=== PATIENT | female | born 1945 | race Caucasian/White ===

== ENCOUNTER → 2021-02-07 11:28 | Outpatient (CLI) | payer OTHER, SELFPAY ==
--- NOTE | 2021-02-07 11:32 | DI.CT.S_ITS ---
PROCEDURE: CT CHEST HIGH RESOLUTION INDICATIONS: Interstitial pulmonary disease, unspecified TECHNIQUE: Noncontrast 1.0 and 5.0 mm thick contiguous axial sections from the pulmonary apex to the posterior costophrenic angles, with 7 mm thick coronal and sagittal MIP reformats. 1 mm thick dynamic expiratory images acquired through the upper, mid, and lower lungs. 1.0 mm thick axial sections acquired from the darlene to the posterior costophrenic angles in the prone end-inspiration position. For radiation dose reduction, the following was used: automated exposure control, adjustment of mA and/or kV according to patient size. COMPARISON: Outside Film, CT, CT CHEST WITHOUT CONTRAST, 10/03/2019, 9:37. FINDINGS: Image quality: Excellent. Lungs: Coarse, mainly subpleural irregular reticulation in the lower lobes greater than upper, and honeycombing at the lateral and posterior costophrenic sulci bilaterally. There are fibrotic changes including traction bronchiectasis in the right medial lower lobe, into a lesser extent right middle lobe and left lower lobe. Overall lung volumes are low. There are no significant ground-glass opacities, nodules, or masses. There is no air trapping on dynamic imaging. Pleura: No pleural effusions or pneumothorax. Mediastinum: Heart size is enlarged. No pericardial effusion. Thoracic aorta is of normal caliber with mild calcification. The main pulmonary arteries are enlarged. Esophagus is normal in caliber. The right lobe of the thyroid gland is enlarged and both lobes contain nodules, similar compared to the prior study. Bones and chest wall: Severe glenohumeral joint degenerative changes bilaterally. No suspicious bony lesions. No vertebral body compression fractures. Abdomen: Supra hepatic IVC appears dilated. Visualized upper abdominal solid organs and bowel loops appear otherwise normal. IMPRESSION: 1. No significant progression of interstitial lung disease in a pattern suggesting UIP or less likely NSIP. 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 2. Main pulmonary artery enlargement suggesting pulmonary artery hypertension. 3. Multinodular thyroid goiter. 4. Cardiomegaly with resolution of pleural effusions. Dictated by: Flower Sorenson M.D. on 02/07/2021 at 16:09 Approved by: Flower Sorenson M.D. on 02/07/2021 at 16:25
== END ==
PROVIDERS: PCP Family Medicine; Referring Provider Internal Medicine Rheumatology; Visit Provider Internal Medicine Rheumatology
DX: J84.9 Interstitial pulmonary disease, unspecified (principal); E04.2 Nontoxic multinodular goiter; I51.7 Cardiomegaly
CPT/HCPCS: 71250

== ENCOUNTER → 2021-02-14 08:45 | Outpatient (CLI) | payer OTHER, SELFPAY ==
[2021-02-14 09:49] LABS: COVID19 -Nasal RAPID Negative (Negative)
== END ==
PROVIDERS: PCP Family Medicine; Referring Provider Family Medicine; Visit Provider Internal Medicine
DX: Z20.822 Contact with and (suspected) exposure to COVID-19 (principal)
CPT/HCPCS: 87635; C9803

== ENCOUNTER → 2021-02-14 10:29 | Outpatient (CLI) | payer OTHER, SELFPAY ==
--- NOTE | 2021-02-22 10:07 | P.PFT.S_ITS ---
Pulmonary Function Test Referral & Results Date Patient Seen: 02/14/21 Requesting provider: Wang Trinidad Results: The spirometry demonstrates an FVC of 1.90 L which is 60% of predicted. The FEV1 was measured at 1.70 L which is 72% of predicted. The FEV1/FVC ratio was 89 which is 119% of predicted. Following the administration of bronchodilator there was a 34% improvement in FEF 25-75%. Lung volumes show an SVC of 3.05 L which is 101% of predicted. The diffusing capacity was measured at 14.31 which is 53% of predicted. No hemoglobin value was provided, so no correction for potential anemia could be made, if appropriate. The maximum voluntary ventilation was normal Interpretation: This study demonstrates perhaps very mild obstructive lung disease based on reduction FEV1 although FEV1/FVC ratio is preserved. There is evidence of minimal benefit following bronchodilator based on improvement in FEF 25-75% as above, which would suggest improvement in small airway flow. Shape a flow vo lume loop is slightly curved suggesting also the potential for some very minimal obstructive lung disease Lung volumes are normal There is a more notable reduction diffusing capacity suggesting more significant disease at the capillary alveolar level, unless patient is anemic as above
== END ==
PROVIDERS: PCP Family Medicine; Referring Provider Internal Medicine Rheumatology; Visit Provider Internal Medicine Rheumatology
DX: J84.89 Other specified interstitial pulmonary diseases (principal); M05.9 Rheumatoid arthritis with rheumatoid factor, unspecified; Z20.822 Contact with and (suspected) exposure to COVID-19
CPT/HCPCS: 87635; 94060; 94726; 94729; C9803

== ENCOUNTER → 2021-05-12 15:51 | Outpatient (CLI) | payer OTHER, SELFPAY ==
--- NOTE | 2021-05-12 15:53 | DI.ECHO.S_ITS ---
[facility]---------+ [facility] +---------+ : : [address] : : : : [id number] : : : : Phone: [phone] : [phone]+ Echocardiogram Report + + :Name: ROBY ASHTON Study Date: 05/12/2021 Height: 65.5 in: :[facility] ReadingLocation: Weight: 220 lb : : Gender: Female BSA: 2.1 m2 : :: 1945 Age: 75 yrs BP: 127/78 mmHg: :Reason For Study: ATRIAL FIBRILLATION : :Ordering Physician: MATILDE, : :MARY Performed By: Samantha Ortez : :Referring: MARY CLAYTON : + + Interpretation Summary The left ventricle is mildly dilated. The ejection fraction is estimated to be 55-60%. Diastolic parameters suggest a pseudonormalization pattern, consistent with probable elevated filling pressures. The right ventricle is normal in size and function. The left atrium is severely dilated. There is moderate mitral regurgitation. There is mild to moderate tricuspid regurgitation. The right ventricular systolic pressure is estimated to be at least 38 mmHg based on an estimated right atrial pressure of 3 mm Hg. Procedure: A two-dimensional transthoracic echocardiogram with color flow and Doppler was performed. The study quality was technically adequate. There is no prior echocardiogram noted for this patient. The patient was in sinus rhythm with heart rates between 60-65 bpm during the exam. Left Ventricle: The left ventricle is mildly dilated. There is normal left ventricular wall thickness. There is no thrombus. The ejection fraction is estimated to be 55-60%. There are no focal wall motion abnormalities. Diastolic parameters suggest a pseudonormalization pattern, consistent with probable elevated filling pressures. Right Ventricle: The right ventricle is normal in size and function. Atria: The left atrium is severely dilated. The right atrium is mildly dilated. There is no Doppler evidence for an interatrial shunt. Mitral Valve: The mitral valve leaflets appear mildly thickened, but open well. There is mild mitral annular calcification. There is moderate mitral regurgitation. Aortic Valve: The aortic valve is trileaflet. The aortic valve is mildly calcified. There is minimally reduced leaflet mobility. There is no aortic valve stenosis. No aortic regurgitation is present. Tricuspid Valve: The tricuspid valve is normal. There is mild to moderate tricuspid regurgitation. The right ventricular systolic pressure is estimated to be at least 38 mmHg based on an estimated right atrial pressure of 3 mm Hg. Pulmonic Valve: The pulmonic valve leaflets are thin and pliable; valve motion is normal. There is no pulmonic valvular regurgitation. Great Vessels: The aortic root is normal size. The ascending aorta is at the upper limits of normal in size. The IVC is of normal diameter and collapses greater than 50% with a sniff. This suggests a low right atrial pressure of 3 mm Hg. Pericardium/ Pleura There is no pericardial effusion. There is no pleural effusion. MMode/2D Measurements & Calculations LVIDd: 5.7 cm LVOT diam: 1.9 cm LVIDs: 4.0 cm Ao root diam: 3.1 cm FS: 30.2 % asc Aorta Diam: 3.4 cm IVSd: 1.0 cm Ao Arch Diam (Prox Trans): 3.3 cm LVPWd: 0.78 cm LV valles. diameter/BSA (cm/m^2): 2.8 LV sys. diameter/BSA (cm/m^2): 1.9 LA A2 area: 29.5 cm2 RA long axis: 6.5 cm LA A4 area: 33.2 cm2 RA area: 24.1 cm2 LA length (vol): 7.4 cm RA vol: 75.6 ml LA vol: 112.0 ml RA : 36.5 ml/m2 LA vol index: 54.1 ml/m2 IVC diam: 1.7 cm RVD1 (basal): 4.0 cm TAPSE: 2.1 cm Doppler Measurements & Calculations Ao V2 max: 163.9 cm/sec LVOT Max Vasquez: 72.0 cm/sec Ao V2 mean: 125.5 cm/sec LV V1 max P.1 mmHg Ao max P.8 mmHg LV V1 VTI: 17.3 cm Ao mean P.8 mmHg GO(I,D): 1.3 cm2 Ao V2 VTI: 40.1 cm GO(V,D): 1.3 cm2 sev ratio: 0.43 GO indexed to BSA (cm^2/m^2): 0.62 MV E max vasquez: 97.6 cm/sec TR max vasquez: 296.2 cm/sec MV A max vasquez: 36.7 cm/sec TR max P.1 mmHg MV E/A: 2.7 PA V2 max: 81.4 cm/sec Med Peak E' Vasquez: 3.8 cm/sec PA V2 mean: 58.6 cm/sec E/E' med: 25.6 PA mean P.5 mmHg Lat Peak E' Vasquez: 7.0 cm/sec PA pr(Accel): 49.9 mmHg E/E' lat: 13.9 E/e' average: 19.8 MV dec time: 0.24 sec SV(LVOT): 51.1 ml Reading Physician:03:13 PM
== END ==
PROVIDERS: PCP Family Medicine; Referring Provider Internal Medicine Cardiovascular Disease; Visit Provider Internal Medicine Cardiovascular Disease
DX: I08.1 Rheumatic disorders of both mitral and tricuspid valves (principal); I48.91 Unspecified atrial fibrillation; I27.20 Pulmonary hypertension, unspecified
CPT/HCPCS: 93306

== ENCOUNTER → 2022-07-15 12:20 | Outpatient (CLI) | payer OTHER, SELFPAY ==
--- NOTE | 2022-07-15 | DI.ECHO.S_ITS ---
[facility] +---------+ [facility] +---------+ : : [address] : : : : [id number] : : : : Phone: [phone] +---------+ Echocardiogram Report + + :Name: ROBY ASHTON Study Date: 07/15/2022 Height: 65.5 in: :[facility] ReadingLocation: Weight: 220 lb : : Gender: Female BSA: 2.1 m2 : :: 1945 Age: 76 yrs BP: 129/77 mmHg: :Reason For Study: ATRIAL FIBRILLATION : :Ordering Physician: OSIRIS, : :TAMELA Griffith Performed By: Samantha Ortez : :Referring: TAMELA NEWELL : + + Interpretation Summary The left ventricle is normal in size and wall thickness. Left ventricular ejection fraction is estimated to be 45 +/- 5%. There has been no significant change since the previous exam. Procedure: A two-dimensional transthoracic echocardiogram with color flow and Doppler was performed in limited views only. The study quality was technically adequate. Comparison is made with the echocardiogram of 10/22/2021. Left Ventricle: The left ventricle is normal in size and wall thickness. Left ventricular ejection fraction is estimated to be 45 +/- 5%. There has been no significant change since the previous exam. Atria: The left atrium is severely dilated. The right atrium is mildly dilated. Great Vessels: The IVC is of normal diameter and collapses greater than 50% with a sniff. This suggests a low right atrial pressure of 3 mm Hg. Pericardium/ Pleura There is no pericardial effusion. There is no pleural effusion. MMode/2D Measurements & Calculations LVIDd: 5.6 cm LA A2 area: 35.2 cm2 LVIDs: 4.2 cm LA A4 area: 32.4 cm2 FS: 24.5 % LA length (vol): 7.5 cm EPSS: 0.80 cm LA vol: 129.7 ml IVSd: 0.91 cm LA vol index: 62.5 ml/m2 LVPWd: 0.90 cm LV valles. diameter/BSA (cm/m^2): 2.7 LV sys. diameter/BSA (cm/m^2): 2.0 RA long axis: 6.0 cm RVD1 (basal): 3.7 cm RA area: 23.3 cm2 RVD2 (mid): 2.9 cm RA vol: 76.9 ml TAPSE: 2.2 cm RA : 37.1 ml/m2 IVC diam: 1.6 cm Reading Physician:03:41 PM
== END ==
PROVIDERS: PCP Internal Medicine; Referring Provider Physician Assistant; Visit Provider Physician Assistant
DX: I48.0 Paroxysmal atrial fibrillation (principal); J84.9 Interstitial pulmonary disease, unspecified; Z79.899 Other long term (current) drug therapy
CPT/HCPCS: 93307

== ENCOUNTER → 2024-06-19 13:43 | Outpatient (CLI) | payer OTHER, SELFPAY ==
--- NOTE | 2024-06-19 13:44 | DI.ECHO.S_ITS ---
[facility] : : [address] : : [facility] : : [place], : : [place] [address] : : Phone: [phone] Echocardiogram Report + + :Name: ROBY ASHTON Study Date: 06/19/2024 Height: 65 in : :[facility] ReadingLocation: Weight: 145 lb : : Gender: Female BSA: 1.7 m2 : :: 1945 Age: 78 yrs BP: 110/62 mmHg: :Reason For Study: ATRIAL FIBRILLATION : :Ordering Physician: DLAY, : :HYACINTH Performed By: Josh Oliveros : :Referring: HYACINTH KAUFFMAN : + + Interpretation Summary 1. Normal LV contractility. EF 50-55%. No WMA. No LVH. Unable to comment on diastolic function. 2. Normal RV contractility. 3. Severe DINO. 4. Moderate to severe MR. 5. Mild to moderate TR with estimated PSAP of 42 mmHg. 5. No obvious intracardiac shunts. 6. No obvious intracardiac masses/thrombi. 7. Small, non-hemodynamically significant pericardial effusion. 8. Normal right sided filling pressures. Conclusion: Low normal left ventricular systolic function with moderate to severe mitral regurgitation. When compared with previous echocardiogram, there is a slight improvement of the LV systolic function. Procedure: A two-dimensional transthoracic echocardiogram with color flow and Doppler was performed in limited views only. The study quality was technically good. Comparison is made with the echocardiogram of 07/15/2022. The patient was in atrial fibrillation with heart rates between 50-100 bpm during the exam. Left Ventricle: The left ventricle is normal in size and wall thickness. There is no ventricular septal defect visualized. The ejection fraction is estimated to be 50-55%. Mitral Valve: The mitral valve is normal. There is moderate to severe mitral regurgitation. Aortic Valve: The aortic valve is trileaflet. The aortic valve opens well. There is trace aortic regurgitation. Tricuspid Valve: The tricuspid valve is normal. There is mild to moderate tricuspid regurgitation. The right ventricular systolic pressure is estimated to be at least 42 mmHg based on an estimated right atrial pressure of 8 mm Hg. Pulmonic Valve: The pulmonic valve leaflets are thin and pliable; valve motion is normal. There is no pulmonic valvular regurgitation. Great Vessels: The IVC is dilated (diameter is greater than 2.1 cm) yet it collapses greater than 50% with a sniff. This suggests a right atrial pressure of 8 mm Hg. Pericardium/ Pleura There is no pericardial effusion. There is no pleural effusion. MMode/2D Measurements & Calculations LVIDd: 5.7 cm IVC diam: 2.4 cm LVIDs: 3.7 cm IVSd: 0.77 cm LVPWd: 0.75 cm LV valles. diameter/BSA (cm/m^2): 3.3 LV sys. diameter/BSA (cm/m^2): 2.1 FS: 34.8 % Doppler Measurements & Calculations TR max francia: 291.1 cm/sec TR max P.9 mmHg Reading Physician:
== END ==
PROVIDERS: PCP Internal Medicine; Referring Provider Internal Medicine Cardiovascular Disease; Visit Provider Internal Medicine Cardiovascular Disease
DX: I08.1 Rheumatic disorders of both mitral and tricuspid valves (principal); I48.0 Paroxysmal atrial fibrillation
CPT/HCPCS: 93307

== ENCOUNTER → 2025-05-31 12:32 | Outpatient (CLI) | payer OTHER, SELFPAY ==
--- NOTE | 2025-05-31 12:35 | DI.ECHO.S_ITS ---
[facility] +---------+ [facility] : : [address] : [address] : : [id number] : : Phone: [phone] Echocardiogram Report + + :Name: ROBY ASHTON Study Date: 05/31/2025 Height: 65 in : :[facility] ReadingLocation: Weight: 138 lb: : Gender: Female BSA: 1.7 m2 : :: 1945 Age: 79 yrs : :Reason For Study: NONRHEUMATIC MITRAL VALVE REGURGITATION : :Ordering Physician: MATILDE, : :MARY Performed By: Josh Oliveros : :Referring: MARY CLAYTON : + + Interpretation Summary The left ventricle is normal in size. The ejection fraction is estimated to be 40-45%.In June 2022 LV ejection fraction in the range of 40 to 45%. However in May 2024 it was reported to be about 50 to 55%. In October 2021, LVEF 45A???5%. Overall no significant change. There is mild global hypokinesis of the left ventricle. The right ventricle is normal in size and function. There is moderate mitral regurgitation. Compared to the prior echo study, there has been a decrease in the severity of mitral regurgitation. There is mild to moderate tricuspid regurgitation. Compared to the prior echo exam, there has been no change in TR severity. The right ventricular systolic pressure is estimated to be at least 33 mmHg based on an estimated right atrial pressure of 3 mm Hg. Compared to the prior echo exam, there has been a decrease in the severity of pulmonary hypertension. Procedure: A two-dimensional transthoracic echocardiogram with color flow and Doppler was performed. The study quality was technically good. Comparison is made with the echocardiogram of 06/19/2024. The patient was in atrial fibrillation with heart rates between 90-106 bpm during the exam. Left Ventricle: The left ventricle is normal in size. There is normal left ventricular wall thickness. There is no thrombus. The ejection fraction is estimated to be 40-45%. There is mild global hypokinesis of the left ventricle. Diastolic function could not be accurately assessed due to atrial fibrillation. Right Ventricle: The right ventricle is normal in size and function. Atria: The left atrium is severely dilated. The left atrium has remained unchanged in size since the prior echo exam. The right atrium is mild to moderately dilated. There is no Doppler evidence for an interatrial shunt. Mitral Valve: There is mild mitral annular calcification. There is moderate mitral regurgitation. Compared to the prior echo study, there has been a decrease in the severity of mitral regurgitation. Aortic Valve: The aortic valve is slightly calcified. There is no hemodynamically significant valvular aortic stenosis. There is trace aortic regurgitation. Tricuspid Valve: The tricuspid valve leaflets are thin and pliable. There is mild to moderate tricuspid regurgitation. The right ventricular systolic pressure is estimated to be at least 33 mmHg based on an estimated right atrial pressure of 3 mm Hg. Compared to the prior echo exam, there has been no change in TR severity. Compared to the prior echo exam, there has been a decrease in the severity of pulmonary hypertension. Pulmonic Valve: The pulmonic valve leaflets are thin and pliable; valve motion is normal. There is no pulmonic valvular regurgitation. Great Vessels: The aortic root is mildly dilated. The dimensions of the ascending aorta are normal. Mild pulmonary artery dilation. The IVC is of normal diameter and collapses greater than 50% with a sniff. This suggests a low right atrial pressure of 3 mm Hg. Pericardium/ Pleura There is no pericardial effusion. There is no pleural effusion. MMode/2D Measurements & Calculations LVIDd: 5.1 cm LVOT diam: 1.9 cm LVIDs: 4.2 cm Ao root diam: 3.7 cm FS: 18.3 % asc Aorta Diam: 3.4 cm EPSS: 0.76 cm IVSd: 0.93 cm LVPWd: 0.77 cm LV valles. diameter/BSA (cm/m^2): 3.0 LV sys. diameter/BSA (cm/m^2): 2.5 LA A2 area: 32.6 cm2 RA long axis: 6.0 cm LA A4 area: 31.8 cm2 RA area: 20.3 cm2 LA length (vol): 7.3 cm RA vol: 58.5 ml LA vol: 120.6 ml RA : 34.6 ml/m2 LA vol index: 71.4 ml/m2 IVC diam: 1.8 cm RVD1 (basal): 3.8 cm RVD2 (mid): 3.2 cm TAPSE: 1.7 cm Doppler Measurements & Calculations Ao V2 max: 147.1 cm/sec LVOT Max Vasquez: 68.3 cm/sec Ao V2 mean: 107.7 cm/sec LV V1 max P.9 mmHg Ao max P.7 mmHg LV V1 VTI: 13.7 cm Ao mean P.1 mmHg GO(I,D): 1.4 cm2 Ao V2 VTI: 28.3 cm GO(V,D): 1.3 cm2 sev ratio: 0.49 GO indexed to BSA (cm^2/m^2): 0.81 MV E max vasquez: 78.4 cm/sec TR max vasquez: 275.3 cm/sec MV A max vasquez: 0.82 cm/sec TR max P.3 mmHg MV E/A: 95.4 PA V2 max: 72.9 cm/sec Med Peak E' Vasquez: 6.4 cm/sec PA V2 mean: 56.3 cm/sec E/E' med: 12.3 PA mean P.3 mmHg Lat Peak E' Vasquez: 4.6 cm/sec PA pr(Accel): 29.3 mmHg E/E' lat: 17.0 E/e' average: 14.7 MV dec time: 0.13 sec SV(LVOT): 38.5 ml Reading Physician:10:42 AM
== END ==
PROVIDERS: PCP Internal Medicine; Referring Provider Internal Medicine Cardiovascular Disease; Visit Provider Internal Medicine Cardiovascular Disease
DX: I08.1 Rheumatic disorders of both mitral and tricuspid valves (principal)
CPT/HCPCS: 93306